=== PATIENT | female | born 1990 | race Caucasian/White ===

== ENCOUNTER 2018-09-18 09:34 | Outpatient (CLI) | payer SELFPAY | END 2018-09-18 09:35 | disposition home or self-care (01) | LOC: C.CARD 09:34 ==

== ENCOUNTER 2018-11-13 14:43 | Outpatient (CLI) | payer SELFPAY | END 2018-11-13 14:44 | disposition home or self-care (01) | LOC: C.RADH 14:43 | DX: R07.81 Pleurodynia (principal) ==